=== PATIENT | male | born 1985 | race Caucasian/White ===

== ENCOUNTER 2024-04-29 12:17 | Outpatient (REF) | payer MEDICAID, SELFPAY ==
[2024-04-29 13:37] LABS: INTERNATIONAL NORM RATIO 0.9 (0.9-1.1); Prothrombin Time 9.9 SEC (10.9-12.4)
[2024-05-01 10:33] LABS: RPR Rapid Plasma Reagin NON-REACTIVE (NON-REACTIVE)
[2024-05-04 18:18] LABS: FIB-ALT 73 U/L (9-46); FIB-Alpha-2-Macroglobulin 226 mg/dL (106-279); FIB-Apolipoprotein A1 188 mg/dL (94-176); FIB-GGT 23 U/L (3-95); FIB-Haptoglobin 39 mg/dL (43-212); FIB-Total Bilirubin 0.3 mg/dL (0.2-1.2); Liver Fibrosis Score 0.17; Liver Fibrosis Stage F0; Nec Inflam Act Grade A1-A2; Nec Inflam Act Score 0.39
== END 2024-04-29 12:18 | disposition home or self-care (01) ==
LOC: HO.LAB 12:17
PROVIDERS: PCP Internal Medicine Geriatric Medicine; Visit Provider Internal Medicine Geriatric Medicine
DX: B19.20 Unspecified viral hepatitis C without hepatic coma (principal); R29.898 Other symptoms and signs involving the musculoskeletal system; G06.1 Intraspinal abscess and granuloma; B18.2 Chronic viral hepatitis C; F11.20 Opioid dependence, uncomplicated; E10.65 Type 1 diabetes mellitus with hyperglycemia
CPT/HCPCS: 36415; 81596; 85610; 86592

== ENCOUNTER 2025-02-27 09:48 | Outpatient (REF) | payer MEDICAID, SELFPAY ==
--- OUTSIDE RECORDS SUMMARY | 2025-02-27 10:23 | XMS_ITS | Clinical Summary ---
Author Organization [employer] Address [address] [place] [address] [address] [place] [address] Care Team Providers Care Paid Search Analyst Name Role Phone Name, Rakesh SANDOVAL Primary Care Provider [phone] Allergies Active Allergy Reactions Criticality Noted Date Comments Bupropion 04/08/2024 Medications methadone (Dolophine) 10 MG tablet Take 200 mg by mouth in the morning. Active tamsulosin (Flomax) 0.4 MG 24 hr capsule Take 1 capsule (0.4 mg) by mouth Once per day. 30 capsule 11 024 Active Blood Glucose Monitoring Suppl (FreeStyle Ola Lite) w/Device kit Use to test blood sugar 3 times daily 1 kit 024 Active insulin glargine (Lantus) 100 UNIT/ML pen Inject 40 Units under the skin at bedtime. 3 mL 3 025 2025 Active insulin pen needle (BD Pen Needle Sho Ultrafine) 32G x 4 mm misc Use as instructed 100 each 12 025 2025 Active insulin lispro (HumaLOG KWIKPEN) 100 UNIT/ML injection 2-10 units prior to meals and snacks per sliding scale 3 each 3 025 Active FREESTYLE LITE test strip Use to test blood sugar 3 times daily 100 each 12 025 2025 Active insulin lispro (HumaLOG) 100 UNIT/ML injection INJECT 2 UNITS SUBCUTANESOULY DIRECTED PER SLIDING SCALE 2024 Discontinued(D uplicate order (will not trigger notification to Pharmacy)) gabapentin (Neurontin) 400 MG capsule Take 1 capsule (400 mg) by mouth 3 times daily. 90 capsule 11 024 2024 Discontinued(T herapy completed) insulin glargine (Lantus) 100 UNIT/ML pen Inject 40 Units under the skin at bedtime. 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 History of bacteremia 04/08/2024 Overview (04/08/2024): History of MRSA bacteremia IVDA Right arm abscess and DVT in the past Septic emboli in the lungs Type 1 diabetes mellitus with hyperglycemia 03/2024 History of DVT in adulthood 04/08/2024 Chronic hepatitis C without hepatic coma Tobacco use 04/08/2024 Subdural abscess (embolic) of spinal cord 2023 Leg weakness, bilateral 04/08/2024 Encounters Date Type Department Care Team Description 02/18/2025 Telephone [facility] [address] [place] [phone] Maddison Alarcon RN 02/07/2025 9:30 AM EDT Office Visit [facility] [address] [place] [phone] Rakesh Catalan MD Type 1 diabetes mellitus with hyperglycemia (CMS/HCC) (Primary Dx); Chronic hepatitis C without hepatic coma (CMS/HCC); Uncomplicated opioid dependence (CMS/HCC) 02/07/2025 Telephone [facility] [address] [place] [phone] Brissa Gonsales, JOELLEN Hep C Management 02/07/2025 Travel 02/06/2025 Telephone [facility] [address] [place] [phone] Rakesh Catalan MD Chart Prep 01/02/2025 10:40 AM EDT Office Visit [facility] [address] [place] [phone] Enzo Shipman MD Open wound of right upper arm, initial encounter (Primary Dx); Type 1 diabetes mellitus with hyperglycemia (CMS/HCC); Uncomplicated opioid dependence (CMS/HCC) from Last 3 Months Social History Tobacco Use Types Packs/Day Years Used Date Smoking Tobacco: Every Day Cigarettes Smokeless Tobacco: Never Tobacco Cessation:Ready to Q uit: Not Asked; Counseling Given: Not Answered Alcohol Use Standard Drinks/Week Comments Never 0 (1 standard drink = 0.6 oz pur e alcohol) Depression Answer Date Recorded Patient Health Questionnaire-9 Score 3 02/07/2025 Patient Health Questionnaire-9 Score 3 02/07/2025 Last PHQ-9: Questionnaire Data Not on file 0 02/07/2025 Housing Stability Answer Date Recorded What is your housing situation today? I have lizzettestormy arredondo 02/07/[address] you li ve. Do you have problems with any of the following? None of the above 02/07/2025 Food Insecurity Answer Date Recorded Within the past 12 months, y ou worried that your food would run out before you got money to buy more: Sometimes True 2024 Within the past 12 months,th e food you bought just didn't last and you didn't have enough money to get more: Sometimes True 02/07/2025 Transportation Answer Date Recorded In the past 12 months, has l ack of transportation kept you from medical appts, meetings, work or from getting things needed for daily living? No 02/07/2025 Utilities Answer Date Recorded In the past 12 months, has t he electric, gas, oil or water company threatened to shut off services in your home? No 02/07/2025 Depression Answer Date Recorded Patient Health Questionnaire-2 Score 0 02/07/2025 Internet Access Answer Date Recorded Internet Access Q1 Yes 02/07/2025 Internet Access Q2 Not on file 02/07/2025 Comments Unknown Sex and Gender Information Value Date Recorded Sex Assigned at Unknown 11/07/2023 1:43 PM EDT Legal Sex Male 10:33 AM EDT Gender Identity Choose not to disclose 1:43 PM EDT Sexual Orientation Choose not to disclose 2023 1:43 PM EDT Last Filed Vital Signs Vital Sign Reading Time Taken Comments Blood Pressure 116/78 02/07/2025 9:53 AM EDT Pulse 84 02/07/2025 9:53 AM EDT Temperature 36.1 C (97 F) 02/07/2025 9:53 AM EDT Respiratory Rate 18 02/07/2025 9:53 AM EDT Oxygen Saturation 97% 02/07/2025 9:53 AM EDT Inhaled Oxygen Concentration - - Weight 85.3 kg (188 lb) 02/07/2025 9:53 AM EDT Height 185.4 cm (6' 1 ) 02/07/2025 9:53 AM EDT Body Mass Index 24.8 02/07/2025 9:53 AM EDT Plan of Treatment Upcoming Encounters Date Type Department Care Team (Late st Contact Info) Description 05/06/2025 1:45 PM EDT Office Visit [facility] [address] [place], [place] [phone] Name, MD Rakesh [address] [place] [address] Health Maintenance Due Date Last Done Comments HIV Screening 1983 Lipid Panel 1983 Diabetes: Foot Exam 1993 Eye Exam 1993 Family Planning (PISQ) 1998 HPV Vaccines (1 - 3-dose series) 1998 DTaP/Tdap/Td Vaccines (1 - Tdap) 2002 Diabetes: Urine Protein Screening 2002 Hepatitis A Vaccines (1 of 2 - Risk 2-dose series) 2002 Hepatitis B Vaccines (1 of 3 - 19+ 3-dose series) 2002 Pneumococcal Vaccine: Pediatrics (0 to 5 Years) and At-Risk Patients (6 to 49) Years (1 of 2 - PCV) 2002 COVID-19 Vaccine ( - 2023-2 5 season) 2024 Influenza Vaccine (#1) 2025 Diabetes: Hemoglobin A1C 05/10/2025 025, 01/02/2025, 04/08/2024 Alcohol/Substance Use Screening 02/07/2026 02/07/2025 Depression Screening 02/07/2026 02/07/2025, 02/07/2025 Disability Screening 02/07/2026 02/07/2025 SDOH Screening 02/07/2026 02/07/2025 Tobacco Screening 02/07/2026 02/07/2025 Zoster Vaccines (1 of 2) 2033 RSV Patients and Patients Aged 60 years or older (1 - 1-dose 75+ series) 2058 HIB Vaccines Aged Out No longer eligi ble based on patient's age to complete this topic IPV Vaccines Aged Out No longer eligi ble based on patient's age to complete this topic Meningococcal B Vaccine Aged Out No l onger eligible based on patient's age to complete this topic Meningococcal Vaccine Aged Out No marily charito eligible based on patient's age to complete this topic RSV under 20 months Aged Out No longe r eligible based on patient's age to complete this topic Rotavirus Vaccines Aged Out No longer eligible based on patient's age to complete this topic Procedures Procedure Name Priority Date/Time Associated Diagnosis Comments POCT GLYCATED HEMOGLOBIN, TOTAL Routine 02/07/2025 9:54 AM EDT Type 1 diabetes mellitus with hyperglycemia ([facility]) POCT GLUCOSE Routine 02/07/2025 9:54 AM EDT Type 1 diabetes mellitus with hyperglycemia ([facility]) POCT GLYCATED HEMOGLOBIN, TOTAL Routine 01/02/2025 11:00 AM EDT Type 1 diabetes mellitus with hyperglycemia ([facility]) from Last 3 Months Results * (ABNORMAL) POCT HGB A1C (02/07/2025 9:54 AM EDT) Only the most recent of2 resultswithin the time period is included. Hemoglobin A1C 9.0(A) 4.0 - 5.7 % QC Media Lot # [id number] Lot# Expiration Date Blood 02/07/2025 9:54 AM EDT us Rakesh Catalan MD POINT OF CARE TEST ENTER/EDIT OR DERABLES Final Result * (ABNORMAL) POCT Glucose (02/07/2025 9:54 AM EDT) Glucose Blood, POC 247(A) 60 - 200 mg/dL QC Media Lot # [id number] Lot# Expiration Date ,025 Blood Capillary blood specimen / Unknown 02/07/2025 9:54 AM EDT Rakesh Catalan MD POINT OF CARE TEST ENTER/EDIT OR DERABLES Final Result from Last 3 Months Insurance [facility] C3 HSN [employer] Care Teams Paid Search Analyst Relationship Specialty Start Date End Date Name, MD Rakesh [address] [place] [id number] PCP - General Internal Medicine 04/08/24
--- OUTSIDE RECORDS SUMMARY | 2025-02-27 10:24 | XMS_ITS | Clinical Summary ---
Author Organization [address] [facility] Address [address] [place] [address] Phone Care Team Providers Care Printed Circuit Board Panels Developer Name Role Phone Dino Tran MD Primary Care Provider [phone] Allergies Active Allergy Reactions Criticality Noted Date Comments Bupropion 04/08/2024 Bupropion Hcl Unknown 06/10/2024 Medications amphetamine-dex troamphetamine (ADDERALL) 30 mg tablet Take 1 tablet (30 mg total) by mouth 1 (one) time each day. Acti ve gabapentin (NEURONTIN) 400 mg capsule Take 1 capsule (400 mg total) by mouth 3 (three) times a day. Acti ve insulin lispro 100 unit/mL injection Inject under the skin 3 (three) times a day before meals. -Administer within 15 minutes of a meal (on sliding meal) Active lidocaine 4 % patch Apply 1 patch topically. Active Glucagon HCl, rDNA, (Glucagon Emergency Kit, human,) 1 mg injection Infuse 1 mg into a venous catheter 1 (one) time if needed for low blood sugar. Acti ve dextrose 40 % gel Take by mouth. Activ e amLODIPine (NORVASC) 5 mg tablet Take 1 tablet (5 mg total) by mouth 1 (one) time each day. 30 each 07/11/20 Active Additional Information Patient not taking.Reported on 01/03/2025 apixaban (ELIQUIS) 5 mg tablet Take 1 tablet (5 mg total) by mouth 2 (two) times a day. 60 each 07/11/20 24 Active Additional Information Patient not taking.Reported on 01/03/2025 nicotine polacrilex (NICORETTE) [address] 1 each (2 mg total) into mouth between cheek and gum every 1 (one) hour if needed for smoking cessation. 100 each 07/11/20 24 Active Additional Information Patient not taking.Reported on 01/03/2025 insulin glargine (LANTUS) 100 unit/mL injection Inject 40 Units under the skin at bedtime. 07/11/20 24 Active Additional Information Patient taking differently: 35 Unitssubcutaneous Nightly, Reported on 01/03/2025 methadone (DOLOPHINE) 10 mg tablet Take 20 tablets (200 mg total) by mouth daily. Active silver sulfADIAZINE (SILVADENE, SSD) 1 % cream Apply topically 1 (one) time each day. 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 ([facility]24, [facility] V28) 01/29/2025 Bacteremia due to methicilli n resistant Staphylococcus aureus 06/27/2024 Cellulitis of right upper extremity 06/10/2024 Acute deep vein thrombosis ( DVT) of right upper extremity ([facility], [facility] V28) 06/10/2024 Encounters Date Type Department Care Team Description 01/29/2025 3:30 PM EDT Office Visit [facility] [address] [place] [phone] Abhilash eBnson PA Drug abuse ([facility], [facility] V28) (Primary Dx); Non-pressure chronic ulcer of skin of other sites with fat layer exposed ([facility] V24, [facility] V28) 01/10/2025 10:30 AM EDT Office Visit [facility] [address] [place] [address] [phone] Abhilash Benson PA Drug abuse ([facility], [facility] V28) (Primary Dx); Non-pressure chronic ulcer of skin of other sites with fat layer exposed ([facility], [facility] V28) 01/03/2025 11:00 AM EDT Office Visit [facility] [address] [place] [address] [phone] Abhilash Benson PA Drug abuse ([facility], [facility] V28) (Primary Dx); Non-pressure chronic ulcer of skin of other sites with fat layer exposed ([facility]24, [facility] V28) from Last 3 Months Medical History Medical History Date Comments Diabetes mellitus ([facility] V24, [facility] V28) Hepatitis C Social History Tobacco Use Types Packs/Day Years Used Date Smoking Tobacco: Every Day Cigarettes Smokeless Tobacco: Current Tobacco Cessation:Ready to Q uit: Not Asked; Counseling Given: Not Answered Alcohol Use Standard Drinks/Week Comments Not Currently 0 (1 standard drink = 0.6 oz pur e alcohol) Interpersonal Safety Answer Date Record ed Physical Abuse 06/11/2024 Verbal Abuse 06/11/2024 Sex and Gender Information Value Date Recorded Sex Assigned at Not on file Legal Sex Male 11:38 AM EST Gender Identity Not on file Sexual Orientation Not on file Obstetrics History Last Filed Vital Signs Vital Sign Reading Time Taken Comments Blood Pressure 121/72 01/29/2025 3:50 PM EDT Pulse 75 01/29/2025 3:50 PM EDT Temperature 35.7 C (96.2 F) 01/29/2025 3:50 PM EDT Respiratory Rate 16 01/29/2025 3:50 PM EDT Oxygen Saturation 97% 01/29/2025 3:50 PM EDT Inhaled Oxygen Concentration - - Weight 86 kg (189 lb 9.5 oz) 06/19/2024 12:45 PM EST Height 182 cm (5' 11.65 ) 06/19/2024 12:45 PM ES T Body Mass Index 25.96 06/19/2024 12:45 PM EST Plan of Treatment Upcoming Encounters Date Type Department Care Team (Late st Contact Info) Description 03/12/2025 8:00 AM EDT Clinical Support [facility] [address] [place] [phone] Health Maintenance Due Date Last Done Comments Diabetes: Annual Foot Exam 1993 Diabetes: Annual Retina Eye Exam 1993 DTaP,Tdap,and Td Vaccines (1 - Tdap) 2002 Hepatitis A Vaccines (1 of 2 - Risk 2-dose series) 2002 Hepatitis B Vaccines (1 of 3 - 19+ 3-dose series) 2002 Pneumococcal Vaccine: Pediatrics (0 to 5 Years) and At-Risk Patients (6 to 49 Years) (1 of 2 - PCV) 2002 Cholesterol Screening (Lipid Panel) 06/28/2022 Social Influencers of Health Screening 06/28/2022 COVID-19 Vaccine (1 - season) 2024 Diabetes: Annual Urine Albumin-Creatinine Ratio (uACR) 06/07/2024 Depression Screening 07/31/2024 Influenza Vaccine (#1) 2025 Diabetes: Blood Sugar Control Test (HGBA1C) 07/04/2025 01/02/2025, 04/08/2024 Diabetes: Annual GFR (Glomerular Filtration Rate) 07/10/2025 07/10/2024, 07/04/2024, 07/03/2024, Additional history exists HIV Screening Completed 06/14/2024 Hepatitis C Screening Completed 06/14/2024, 024 HIB Vaccines Aged Out No longer eligi ble based on patient's age to complete this topic HPV Vaccines Aged Out No longer eligi ble based on patient's age to complete this topic IPV Vaccines Aged Out No longer eligi ble based on patient's age to complete this topic MMR Vaccines Aged Out No longer eligi ble based on patient's age to complete this topic Meningococcal ACWY Vaccine Aged Out N o longer eligible based on patient's age to complete this topic Meningococcal B Vaccine Aged Out No l onger eligible based on patient's age to complete this topic RSV Immunization Patients Under 20 months Aged Out No longer eligible based on patient's age to complete this topic Varicella Vaccines Aged Out No longer eligible based on patient's age to complete this topic Goals Goal Patient Goal Type Associated Problems Recent Progress Patient-Stated? Author Decrease Wound Volume by X% by date (in notes) Care Plan Impaired Tissue Improving(08/2024 4:02 PM EDT) No Blanca Salazar, JOELLEN Patient and Caregiver Understand Wound Care Education Care Plan Impaired Tissue On track( 025 4:02 PM EDT) No Blanca Salazar, buttonholer volume breakdown reduced by X% by week 4 Care Plan Impaired Tissue No Blanca Salazar, buttonholer volume breakdown reduced by X% by week 8 Care Plan Impaired Tissue No Marie, Blanca, buttonholer volume breakdown reduced by X% by week 12 Care Plan Impaired Tissue No Blanca Salazar RN Quit using tobacco (cigarettes, smokeless, etc) Care Plan Education needed on impact of smoking on wound No Blanca Salazar RN Reduce tobacco use (cigarettes, smokeless, etc) Care Plan Education needed on impact of smoking on wound No Blanca Salazar RN Decrease Wound Volume by X% by date (in notes) Care Plan Education needed on impact of smoking on wound No Blanca Salazar RN Patient and Caregiver Understand Wound Care Education Care Plan Education needed related to ulceration/compr omised skin integrity. No Blanca Salazar RN Medical Devices Implanted Type Area Pulp Refiner Operator Device Identifier Shelf Expiration Date Model / Serial / Lot Tray Cath Powerline 6f 2lum Micro Pwrln W/Surecuff - [id number] - [id number] Implanted:Qty: 1 on 06/24/2024 by Ceci Boo MD at [facility] pheral Catheters and Ports Right: Chest Wall CR BARD PERIPHERAL VASCULAR [id number] 07/30/2027 [id number] / [id number] / [id number] Procedures Procedure Name Priority Date/Time Associated Diagnosis Comments DEBRIDEMENT Routine 01/10/2025 10:30 AM EDT Drug abuse (CMS/HCC V24, CMS/HCC V28) Non-pressure chronic ulcer of skin of other sites with fat layer exposed (CMS/HCC V24, CMS/HCC V28) DEBRIDEMENT Routine 01/03/2025 11:00 AM EDT Drug abuse (CMS/HCC V24, CMS/HCC V28) Non-pressure chronic ulcer of skin of other sites with fat layer exposed (CMS/HCC V24, CMS/HCC V28) CREATININE, SERUM Routine 07/10/2024 2:0 0 PM EST HEPATITIS C VIRUS QUANTITATIVE PCR Routine 06/14/2024 6:40 AM EST HIV 1, 2 ANTIBODY, P24 ANTIGEN WITH REFLEX TO DIFFERENTIATION Routine 06/14/2024 6:39 AM EST from Last 3 Months or Most Recently Relevant to Health Maintenance Results * Debridement Other (comment) (IV drug/infection) Right;Inner Elbow (01/10/2025 10:30 AM EDT) Narrative Jose Alberto Huerta MD - 01/10/2025 10:30 AM EDT CROW Chiang 01/10/2025 10:55 AM Debridement Other (comment) (IV drug/infection) Right;Inner Elbow Performed by: CROW Chiang Authorized by: CROW Chiang Associated wounds: Wound Other (comment) 06/11/24 Elbow Right;Inner Consent: Consent obtained: Verbal Consent given by: Patient Risks discussed: Yes Time out: Immediately prior to the procedure a time out was called Debridement Details: Performed by: CROW Type: surgical Level: subcutaneous tissue Pain control: Lidocaine 4% Severity of Tissue Pre Debridement: Fat layer exposed Severity of Tissue Post Debridement: Fat layer exposed Time taken: 01/10/2025 10:31 AM Length (cm): 9 Width (cm): 2.8 Depth (cm): 0.1 Area (cm^2): 25.2 Time taken: 01/10/2025 10:32 AM Length (cm): 9 Width (cm): 2.8 Depth (cm): 0.1 Percent Debrided (%): 75 Surface Area (cm^2): 25.2 Area Debrided (cm^2): 18.9 Volume (cm^3): 2.52 Tissue and other material debrided: dermis, epidermis and subcutaneous tissue Devitalized tissue debrided: biofilm, exudate, fibrin and slough Instrument: Curette Amount of bleeding: small Hemostasis obtained with: Pressure Procedural pain: 0 Post-procedural pain: 0 Response to treatment: Procedure was tolerated well Abhilash MARIA IN CLINIC/BEDSIDE ORDERABLE S Final Result * Debridement Other (comment) (IV drug/infection) Right;Inner Elbow (01/03/2025 11:00 AM EDT) Narrative Jose Alberto Huerta MD - 01/03/2025 11:00 AM EDT CROW Chiang 01/03/2025 3:16 PM Debridement Other (comment) (IV drug/infection) Right;Inner Elbow Performed by: CROW Chiang Authorized by: CROW Chiang Associated wounds: Wound Other (comment) 06/11/24 Elbow Right;Inner Consent: Consent obtained: Verbal Consent given by: Patient Risks discussed: Yes Time out: Immediately prior to the procedure a time out was called Debridement Details: Performed by: PA Type: surgical Level: subcutaneous tissue Pain control: Lidocaine 4% Severity of Tissue Pre Debridement: Fat layer exposed Severity of Tissue Post Debridement: Fat layer exposed Time taken: 01/03/2025 11:25 AM Length (cm): 9.9 Width (cm): 4.2 Depth (cm): 0.1 Area (cm^2): 41.58 Time taken: 01/03/2025 11:26 AM Length (cm): 9.9 Width (cm): 4.2 Depth (cm): 0.1 Percent Debrided (%): 75 Surface Area (cm^2): 41.58 Area Debrided (cm^2): 31.19 Volume (cm^3): 4.16 Tissue and other material debrided: dermis, epidermis and subcutaneous tissue Devitalized tissue debrided: biofilm, exudate, fibrin and slough Instrument: Curette Amount of bleeding: small Hemostasis obtained with: Pressure Procedural pain: 0 Post-procedural pain: 0 Response to treatment: Procedure was tolerated well us Abhilash MARIA IN CLINIC/BEDSIDE ORDERABLE S Final Result * Creatinine serum (07/10/2024 2:00 PM EST) Creatinine 0.80 0.70 - 1.30 mg/dL LAB CHEMISTRY METHOD 07/10/2024 4:46 PM EST [facility] eGFR 114 >=60 mL/min/1. 73m2 LAB CHEMISTRY METHOD 07/10/2024 4:46 PM EST [facility] Comment:Calculation based on the Chronic Kidney Disease Epidemiology Collaboration (CKD-EPI) equation refit without adjustment for race. Blood Blood sample taken from central line / Unknown Existing Catheter / Unknown 07/10/2024 2:00 PM EST 07/10/2024 4:23 PM EST Ubaldo Vincent MD LAB BLOOD ORDERABLE S Final Result [facility] [address] [place] [address], [place] [phone] * (ABNORMAL) Hepatitis C virus quantitative molecular study (06/14/2024 6:40 AM EST) [facility] HCV Qual Interp Detected (A) Not Detected LAB MOLECULAR DIAGNOSTICS METHOD 06/14/2024 11:28 AM EST [facility] HCV RNA Quantitative 303,149( H) <12 I Unit/mL LAB MOLECULAR DIAGNOSTICS METHOD 06/14/2024 11:28 AM EST [facility] HCV RNA Quantitative Log 5.48(H) <1.08 Log IU/mL LAB MOLECULAR DIAGNOSTICS METHOD 06/14/2024 11:28 AM [facility] Blood Venous blood specimen / Unknown Venipuncture / Unknown 06/14/2024 6:40 AM EST 06/14/2024 7:44 AM EST Viviane Rosales MD LAB BLOOD ORDERABLES Final Resul t [facility] [address] [place] [address], [place] [phone] * HIV 1,2 antibody, p24 antigen with reflex to differentiation (06/14/2024 6:39 AM EST) [facility] HIV Combo AB/AG Negative Negative LAB CHEMISTRY METHOD 06/14/2024 9:19 AM EST [facility] Blood Venous blood specimen / Unknown Venipuncture / Unknown 06/14/2024 6:39 AM EST 06/14/2024 7:44 AM EST Narrative [facility] - 06/14/2024 9:19 AM EST This assay is a 4th generation assay allowing for earlier detection of HIV infection by detecting the presence of the HIV-1 p24 antigen as well as the traditional antibodies to HIV type 1 (including group O) and type 2. Use of a 4th generation assay is the current CDC recommendation for HIV screening. us Viviane Rosales MD LAB BLOOD ORDERABLES Final Resul t [facility] [address] [place] [address], from Last 3 Months or Most Recently Relevant to Health Maintenance Additional Health Concerns Active Problems Noted Date Diagnosed Date Impaired Tissue 01/03/2025 Education needed on impact of smoking on wound 0 01/03/2025 Education needed related to ulceration/compromised skin integrity. 01/03/2025 Infection Onset Date Last Indicated MRSA 06/10/2024 06/11/2024 Insurance MEDICAID - [place] Advance Directives Documents on File Type Date Recorded Patient Lock Operator Expl anation Health Care Decision (hx) 02/05/2024 AD RAVI DIRECTIVE Health Care Decision (hx) 02/05/2024 AD RAVI DIRECTIVE * Full Code - Default (Latest Code Status on File) Date Activated Date Inactivated Comments 06/10/2024 10:56 PM 07/11/2024 5:51 PM This is o rder is used when code status has not been discussed with the patient, or code status is otherwise unknown/unconfirmed To update the patient's code status, place a code status order. Do not modify or discontinue any currently active code status orders. Care Teams Printed Circuit Board Panels Developer Relationship Specialty Start Date End Date Dino Tran MD [address] [facility] [address] [place] [address] (work) PCP - General 03/25/24
[2025-02-27 10:51] LABS: INTERNATIONAL NORM RATIO 0.9 (0.9-1.1); Prothrombin Time 10.7 SEC (10.9-12.4)
[2025-02-27 11:53] LABS: HBS Num1 5.92 mIU/mL (0-7.99); HBc Num1 0.15 S/CO (0.00-0.79); HBsAGNum1 0.32 S/CO (0.00-0.99); Hepatitis B Surface Antigen Negative (Negative); ~Hepatitis B Surface Antibody NONREACTIVE (Nonreactive)
[2025-02-28 03:45] LABS: ~Hepatitis A Antibody IgG 10.33 S/CO (0.00-0.99)
[2025-02-28 14:13] LABS: HCV Log PCR 5.63 Log IU/mL (NOT DETECTED); HepC Viral Load 430000 IU/mL (NOT DETECTED)
[2025-03-06 17:19] LABS: FIB-ALT 33 U/L (9-46); FIB-Alpha-2-Macroglobulin 193 mg/dL (106-279); FIB-Apolipoprotein A1 152 mg/dL (94-176); FIB-GGT 31 U/L (3-95); FIB-Haptoglobin 74 mg/dL (43-212); FIB-Total Bilirubin 0.3 mg/dL (0.2-1.2); Liver Fibrosis Score 0.16; Liver Fibrosis Stage F0; Nec Inflam Act Grade A0; Nec Inflam Act Score 0.14
== END 2025-02-27 09:49 | disposition home or self-care (01) ==
LOC: HO.LAB 09:48
PROVIDERS: PCP Internal Medicine Geriatric Medicine; Visit Provider Internal Medicine Geriatric Medicine
DX: Z11.59 Encounter for screening for other viral diseases (principal); B18.2 Chronic viral hepatitis C
CPT/HCPCS: 36415; 81596; 85610; 86704; 86706; 86708; 87340; 87522